=== PATIENT | female | born 2000 | race Caucasian/White ===

== ENCOUNTER 2019-05-07 11:02 | Emergency (ER) | payer OTHER ==
[2019-05-07] MEDS ORDERED: IBUPROFEN 600 MG TABLET PO STA (12:27)
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
[2019-05-07 12:47] VITALS: BP 114/69
== END 2019-05-07 12:44 | disposition home or self-care (01) ==
LOC: ED 11:02
DX: S16.1XXA Strain of muscle, fascia and tendon at neck level, initial encounter (principal); M54.6 Pain in thoracic spine; V43.52XA Car driver injured in collision with other type car in traffic accident, initial encounter
CPT/HCPCS: 99282; 99284; A9270